=== PATIENT | female | born 2000 | race Caucasian/White ===

== ENCOUNTER 2020-08-06 12:45 | Emergency (ER) | payer OTHER ==
[~2020-08-06 12:45] MED LIST: ANUCORT-HC25 MG PR; BENTYL10 MG PO; PROTONIX 40MG T40 MG PO
[2020-08-06 13:32] LABS: BASOPHIL 0.6 % (0-2); EOSINOPHIL 2.8 % (0-5); HGB 13.4 g/dl (12.5-16.0); MCH 28.7 pg (25.0-31.0); MCHC 32.7 g/dL (32.0-36.0); MCV 87.8 fL (78.0-100.0); MONOCYTE 7.1 % (0-12); MPV 9.7 fL (6.0-9.5); NEUTROPHIL 50.4 % (41-80); NRBC 0; PLT 316 K/uL (150-400); RBC 4.67 M/uL (4.20-5.40); RDW 12.1 % (11.5-14.0); WBC 8.8 K/uL (4.0-10.5)
[2020-08-06 13:36] LABS: BILIRUBIN NEGATIVE (NEGATIVE); BLOOD 3+ Ery/uL (NEGATIVE); CLARITY CLEAR (CLEAR); COLOR YELLOW (YELLOW); GLUCOSE (U) NORMAL (NORMAL); LEUKOCYTES NEGATIVE Leu/uL (NEGATIVE); NITRITE NEGATIVE (NEGATIVE); PROTEIN 2+ mg/dL (NEGATIVE); SPECIFIC GRAVITY >=1.030 (1.001-1.030); UROBILINOGEN 0.2 mg/dL (0.2-1.0)
[2020-08-06 13:50] LABS: ALBUMIN 4.1 g/dL (3.4-5.0); BILIRUBIN - TOTAL 0.3 mg/dL (0.2-1.0); BUN/CREAT RATIO (CALC) 14.4 RATIO; CREATININE 0.97 mg/dL (0.51-0.95); GLOBULIN (CALCULATION) 3.8 g/dL; POTASSIUM 3.7 mmol/L (3.5-5.1); TOTAL PROTEIN 7.9 g/dL (6.4-8.2)
[2020-08-06 14:08] LABS: BACTERIA 2+; URINARY RBC TNTC
[2020-08-06] MEDS ORDERED: BACTRIM DS TAB1 EACH PO (14:57)
[2020-08-06] MEDS ORDERED: FLOMAX0.4 MG PO (14:57)
[2020-08-06] MEDS ORDERED: ZOFRAN4 M1 PO (14:57)
[2020-08-06] MEDS ORDERED: NORCO 5-325 TA1 EACH PO (14:57)
== END 2020-08-06 15:56 | disposition home or self-care (01) ==
LOC: FER 12:45
PROVIDERS: Emergency Medicine
DX: R11.2 Nausea with vomiting, unspecified (principal); N13.2 Hydronephrosis with renal and ureteral calculous obstruction; F17.290 Nicotine dependence, other tobacco product, uncomplicated; Z87.442 Personal history of urinary calculi
CPT/HCPCS: 36415; 80053; 81001; 82150; 83690; 85025; 87088; J1885; J2405; J7030